=== PATIENT | female | born 1945 | race Caucasian/White ===

== ENCOUNTER 2019-02-22 12:39 | Emergency (ER) | payer OTHER ==
[2019-02-22 12:54] VITALS: BP 154/59; PULSE 72; TEMP 98.2; BMI 36.3
--- NOTE | 2019-02-22 13:41 | PDOC ---
History of Present Illness - General Chief Complaint: Eye Problem Stated Complaint: LF EYE BURNING \ IRRITATION Time Seen by Provider: 02/22/19 12:58 History Source: Patient, Family Exam Limitations: No Limitations - History of Present Illness Initial Comments: 02/22/19 13:12 74 yo F w/ a h/o DM, HTN, HLD, comes in with daughter and grandson c/o L eye redness since this am. Pt woke up and saw that her L eye was red. NO other complaints today, no fever/hcills, no NVD, no eye pain, no eye itching today. Although says that she suffers from allergies, used some eye drops last night before going to sleep because her eyes were itchy. Denies fall, no eye trauma, denies sneezing/coughing. No eye discharge, no known sick contacts with pink eye , no vision changes, no FB entry in eyes, no rash, no recent travel. Denies bleeding/bruising from anywhere else. Pt takes the following medications at home - No anticoagulants. metformin norvasc b12 tylenol prn lisinopril atorvastatin 02/22/19 15:45 02/22/19 15:48 Past History - Past Medical History Allergies/Adverse Reactions: Allergies Allergy/AdvReac Type Severity Reaction Status Date / Time No Known Allergies Allergy Verified 02/22/19 12:49 Home Medications: Ambulatory Orders Loratadine [Claritin] 10 mg PO DAILY 20 Days #20 tablet 02/22/19 COPD: No Diabetes: Yes HTN: Yes - Suicide/Smoking/Psychosocial Hx Smoking History: Never smoked Have you smoked in the past 12 months: No Hx Alcohol Use: No Drug/Substance Use Hx: No Review of Systems - Review of Systems Able to Perform ROS?: Yes Constitutional: No: Chills, Fever, Malaise, Night Sweats HEENTM: No: Eye Pain, Blurred Vision, Recent change in vision, Double Vision, Throat Pain Respiratory: No: Cough, Shortness of Breath Cardiac (ROS): No: Chest Pain, Palpitations, Chest Tightness ABD/GI: No: Diarrhea, Nausea, Vomiting, Abdominal cramping : No: Dysuria, Hematuria Musculoskeletal: No: Back Pain Integumentary: No: Rash Neurological: No: Headache, Numbness, Dizziness Psychiatric: No: Change in Appetite Endocrine: No: Unexplained Weight Loss *Physical Exam - Vital Signs Last Vital Signs Temp Pulse Resp BP Pulse Ox 98.2 F 72 18 154/59 L 96 02/22/19 12:49 02/22/19 12:49 02/22/19 12:49 02/22/19 12:49 02/22/19 12:49 - Physical Exam General Appearance: Yes: Nourished. No: Apparent Distress HEENT: positive: EOMI, RASTA (L eye with subconcjunctival hemorrhage occupying outer hald of conjunctiva. NO active bleeding now, on discharge. Vision unchanged as per patient, she does not know how to read and is unable to read the eye chart, although recognizes shapes 20/50 OD, OS, OU. No fluorescein uptake upon magnified exam.), Normal ENT Inspection, Normal Voice. negative: Pale Conjunctivae, Photophobia, Scleral Icterus (R), Scleral Icterus (L) Neck: positive: Supple. negative: Decreased range of motion, Tender midline Respiratory/Chest: negative: Respiratory Distress, Accessory Muscle Use Cardiovascular: positive: Regular Rhythm, Regular Rate Musculoskeletal: positive: Normal Inspection Extremity: positive: Normal Capillary Refill, Normal Inspection, Normal Range of Motion. negative: Tender, Pedal Edema Integumentary: positive: Normal Color, Dry. negative: Jaundice, Rash, Ecchymosis, Bruising Neurologic: positive: Fully Oriented, Alert, Normal Mood/Affect Medical Decision Making - Medical Decision Making 02/22/19 16:04 74 yo F w/ subconjunctival hemorrhage, likely from allergies. She is not on ACs. WIll recommend artificial tears, no antihistaminic eyedrops, will give claritin. Do not rub eyes. Ophto follow up this week. Return for worsening/ concerning symptoms Pt and family members verbalize understanding and agree with plan Case discussed with Dr. Hightower who agrees with assessment and plan 02/22/19 16:05 *DC/Admit/Observation/Transfer Diagnosis at time of Disposition: Subconjunctival hemorrhage of left eye - Discharge Dispostion Disposition: HOME Condition at time of disposition: Stable - Prescriptions Prescriptions: Loratadine [Claritin] 10 mg PO DAILY 20 Days #20 tablet - Referrals Referrals: Tigre Pereira MD [Primary Care Provider] - Hallie Small MD [Staff Physician] - Duong Mota MD [Staff Physician] - - Patient Instructions Printed Discharge Instructions: DI for Subconjunctival Hemorrhage Additional Instructions: Please do not rub your eyes, do not scratch them. Return to the ER for worsening /concerning symptoms including bleeding. Please call the ophtalmologist to schedule an appointment for this week. I gave you 2 doctor's names, you may make an appointment with the one which suits you best. - Post Discharge Activity
== END 2019-02-22 14:06 | disposition home or self-care (01) ==
LOC: JER 12:39
DX: H11.32 Conjunctival hemorrhage, left eye (principal); I10 Essential (primary) hypertension; E11.9 Type 2 diabetes mellitus without complications
CPT/HCPCS: 99281-25

== ENCOUNTER 2022-11-14 23:36 | Observation (INO) | payer OTHER ==
[2022-11-15] MEDS ORDERED: FAMOTIDINE 20 MG/50 ML IVPB 20 MG/50 ML MG IVPB ONE ×2 (00:04→00:07)
[2022-11-15] MEDS ORDERED: LACTATED RINGERS SOLUTION 1000 ML INFUS.BAG IV ONE (00:04)
[2022-11-15] MEDS ORDERED: methylPREDNISolone NA SUCC 125 MG/2 ML VIAL IVPUSH ONE (00:04)
[2022-11-15] MEDS ORDERED: methylPREDNISolone NA SUCC 125 MG/2 ML VIAL ONE (00:06)
[2022-11-15 00:26] LABS: BASO % 0.2 % (0-2.0); EOS % 1.6 % (0-4.5); HEMATOCRIT 38.5 % (32.4-45.2); HEMOGLOBIN 12.9 GM/dL (10.7-15.3); LYMPH % 35.6 % (8-40); MCH 34.6 pg (25.7-33.7); MCHC 33.5 g/dl (32.0-36.0); MEAN CELL VOLUME 103.3 fl (80-96); MEAN PLT VOLUME 8.4 fl (7.5-11.1); MONO % 8.3 % (3.8-10.2); NEUT % 54.3 % (42.8-82.8); PLATELET COUNT 200 10^3/uL (134-434); RBC 3.72 M/mm3 (3.60-5.2); RDW 14.3 % (11.6-15.6); WHITE BLOOD COUNT 5.9 K/mm3 (4.0-10.0)
[2022-11-15 00:46] LABS: ALBUMIN 3.6 g/dl (3.4-5.0); BLOOD UREA NITROGEN 17.7 mg/dL (7-18)
[2022-11-15 00:49] LABS: CREATININE 0.9 mg/dL (0.55-1.3)
[2022-11-15 00:51] LABS: BILIRUBIN,TOTAL 0.3 mg/dL (0.2-1); TOT PROT 7.6 g/dl (6.4-8.2)
[2022-11-15 01:18] LABS: ACTIVATED PTT 30.9 SECONDS (25.2-36.5); INR 1.09 (0.83-1.09); PROTHROMBIN TIME (PATIENT) 12.5 SEC (9.7-13.0)
[2022-11-15] MEDS ORDERED: TRANEXAMIC ACID 1000 MG/10 ML VIAL IVPUSH ONE (02:00)
[2022-11-15] MEDS ORDERED: EPINEPHrine 1:1,000 0.3 MG/0.3 ML SYR IM ONE (02:02)
[2022-11-15] MEDS ORDERED: EPINEPHrine/PF 1 MG/1 ML (1:1,000) AMPULE ONE (02:27)
[2022-11-15] MEDS ORDERED: TRANEXAMIC ACID 1000 MG/10 ML VIAL ONE (02:27)
[2022-11-15] MEDS: ENOXAPARIN NA (PORCINE) 40 MG/0.4 ML DISP.SYRIN SQ SCH (08:00)
[2022-11-15] MEDS ORDERED: HYDROCHLOROTHIAZIDE 25 MG TABLET (FP) ONE (08:46)
[2022-11-15] MEDS: HYDROCHLOROTHIAZIDE 12.5 MG CAPSULE (FP) PO SCH (08:46)
[2022-11-15] MEDS ORDERED: ENOXAPARIN NA (PORCINE) 40 MG/0.4 ML DISP.SYRIN SQ ONE (08:47)
[2022-11-15 15:13] LABS: BASO % 0.2 % (0-2.0); HEMATOCRIT 38.9 % (32.4-45.2); HEMOGLOBIN 12.9 GM/dL (10.7-15.3); LYMPH % 14.8 % (8-40); MCHC 33.2 g/dl (32.0-36.0); MEAN CELL VOLUME 102.5 fl (80-96); MEAN PLT VOLUME 8.9 fl (7.5-11.1); MONO % 1.8 % (3.8-10.2); NEUT % 83.2 % (42.8-82.8); PLATELET COUNT 207 10^3/uL (134-434); RDW 14.1 % (11.6-15.6); WHITE BLOOD COUNT 7.1 K/mm3 (4.0-10.0)
[2022-11-15 15:45] LABS: CALCIUM 9.5 mg/dL (8.5-10.1)
[2022-11-15 15:46] LABS: ALBUMIN 3.7 g/dl (3.4-5.0); BLOOD UREA NITROGEN 16.5 mg/dL (7-18)
[2022-11-15 15:48] LABS: TOT PROT 7.9 g/dl (6.4-8.2)
[2022-11-15 15:49] LABS: CREATININE 0.8 mg/dL (0.55-1.3); PHOSPHOROUS 2.4 mg/dL (2.5-4.9)
[2022-11-15 15:50] LABS: BILIRUBIN,TOTAL 0.4 mg/dL (0.2-1)
[2022-11-15 18:58] VITALS: BMI 34.2
[2022-11-15] MEDS ORDERED: amLODIPine BESYLATE 10 MG TABLET (FP) PO SCH (22:00)
[2022-11-15] MEDS ORDERED: ATORVASTATIN CA 20 MG TABLET (FP) PO SCH (22:00)
[2022-11-16] MEDS ORDERED: ATORVASTATIN CA 20 MG TABLET (FP) ONE (02:19)
[2022-11-16] MEDS ORDERED: amLODIPine BESYLATE 10 MG TABLET (FP) ONE (02:19)
[2022-11-16] MEDS: HYDROCHLOROTHIAZIDE 12.5 MG CAPSULE (FP) PO SCH (06:13)
[2022-11-16] MEDS: ENOXAPARIN NA (PORCINE) 40 MG/0.4 ML DISP.SYRIN SQ SCH (09:36)
[2022-11-16 11:25] VITALS: RESP 18
[2022-11-16 13:21] LABS: BASO % 0.4 % (0-2.0); EOS % 0.5 % (0-4.5); HEMATOCRIT 38.2 % (32.4-45.2); HEMOGLOBIN 12.5 GM/dL (10.7-15.3); LYMPH % 27.1 % (8-40); MCH 33.8 pg (25.7-33.7); MCHC 32.9 g/dl (32.0-36.0); MEAN CELL VOLUME 102.9 fl (80-96); MEAN PLT VOLUME 8.8 fl (7.5-11.1); MONO % 9.7 % (3.8-10.2); NEUT % 62.3 % (42.8-82.8); PLATELET COUNT 222 10^3/uL (134-434); RBC 3.71 M/mm3 (3.60-5.2); RDW 14.2 % (11.6-15.6); WHITE BLOOD COUNT 7.7 K/mm3 (4.0-10.0)
[2022-11-16 13:47] LABS: BLOOD UREA NITROGEN 24.8 mg/dL (7-18); CALCIUM 9.3 mg/dL (8.5-10.1); MAGNESIUM 2.1 mg/dL (1.8-2.4)
[2022-11-16 13:50] LABS: PHOSPHOROUS 3.1 mg/dL (2.5-4.9)
[2022-11-16 13:51] LABS: CREATININE 0.7 mg/dL (0.55-1.3)
[2022-11-16 14:56] VITALS: BP 128/59; PULSE 53; TEMP 98.5
== END 2022-11-16 18:24 | disposition home or self-care (01) ==
LOC: JER 23:36 → JERBED 11-15 02:32 → J4S 11-16 03:03
PROVIDERS: ADMIT Internal Medicine
PROC: 3E033GC Introduction of Other Therapeutic Substance into Peripheral Vein, Percutaneous Approach (ICD-10-PCS; principal; 2022-11-15)
PROC: 3E0337Z Introduction of Electrolytic and Water Balance Substance into Peripheral Vein, Percutaneous Approach (ICD-10-PCS; 2022-11-15)
DX: T78.3XXA Angioneurotic edema, initial encounter (principal); X58.XXXA Exposure to other specified factors, initial encounter; I10 Essential (primary) hypertension; Z29.8 Encounter for other specified prophylactic measures; Z88.8 Allergy status to other drugs, medicaments and biological substances; E66.8 Other obesity; Z68.34 Body mass index [BMI] 34.0-34.9, adult
CPT/HCPCS: 0241U-QW; 36415; 36430; 71045-TC-FY; 80048; 80053; 83735; 84100; 85025; 85610; 85730; 86850; 86900; 86901; 93005; 93010; 96365; 96372; 96375; 99285-25; G0378; J0171; P9017